=== PATIENT | female | born 1980 | race Caucasian/White ===

== ENCOUNTER 2019-07-17 12:02 | Emergency (ER) | payer MEDICAID ==
[~2019-07-17] VITALS: Ht 152.4 cm; Wt 95.9 kg
[~2019-07-17 12:02] MED LIST: AMOXICILLIN 50500 MG PO; CEPHALEXIN500 M1 PO; CIPRO500 M1 PO; DIFLUCAN100 MG PO; GOOD NEIGHBOR200 M1 PO; LISINOPRIL10 MG; LISINOPRIL10 MG PO; NORCO 325 MG-51 TA1 PO; NORCO 325 MG-51 TAB PO; PRENATAL1 TA1 PO; ZESTRIL 10MG10 MG PO
[2019-07-17] MEDS ORDERED: PRINIVIL10 M1 PO (12:08)
[2019-07-17] MEDS ORDERED: ESTRACE1 M1 PO (12:08)
[2019-07-17 12:30] LABS: EOS # 0.1 (0.04-0.40); EOS % 1.6 % (1.0-5.0); HEMATOCRIT 38.6 % (37.0-47.0); HEMOGLOBIN 12.8 g/dL (12.5-16.0); LYMPH# 2.5 (1.50-4.00); MEAN CELL VOLUME 89 fl (78-100); MEAN CORPUSCULAR HEMOGLOBIN 30 pg (27-31); MEAN CORPUSCULAR HGB CONC 33 g/dL (33-37); MEAN PLATELET VOLUME 9.4 fl (7.4-10.4); MONO # 0.6 (0.20-0.80); NEU # 4.1 (1.40-6.50); PLATELET COUNT 262 K/mm3 (130-400); RED BLOOD COUNT 4.32 M/mm3 (4.10-5.30); WHITE BLOOD COUNT 7.3 K/mm3 (4.8-10.8)
[2019-07-17] MEDS ORDERED: PROMETH-CODEIN 65 ML PO (13:10)
[2019-07-17] MEDS ORDERED: PREDNISONE20 M1 PO (13:10)
[2019-07-17 13:17] VITALS: BP 142/61
== END 2019-07-17 13:18 | disposition home or self-care (01) ==
LOC: ED 12:02
PROVIDERS: Family Medicine
DX: J06.9 Acute upper respiratory infection, unspecified (principal); I10 Essential (primary) hypertension; F17.210 Nicotine dependence, cigarettes, uncomplicated; Z90.49 Acquired absence of other specified parts of digestive tract; Z98.890 Other specified postprocedural states; Z90.710 Acquired absence of both cervix and uterus